=== PATIENT | male | born 1980 | race American Indian/Alaskan Native ===

== ENCOUNTER 2017-02-13 17:53 | Emergency (ER) | payer SELFPAY ==
[2017-02-13 18:08] VITALS: BP 133/95
[2017-02-13] MEDS ORDERED: MORPHINE ONE (18:41)
--- NOTE | 2017-02-13 20:25 | Emergency Department Report ---
ED ENT HPI - General Chief complaint: Dental/Oral Stated complaint: TOOTH ACHE Time Seen by Provider: 02/13/17 20:03 Source: patient Mode of arrival: Ambulatory Limitations: No Limitations - History of Present Illness Initial comments: For 5 days of left sided lower jaw pain. Patient has not had his 2 was 98. He is scheduled for an appointment on March 15. No fevers. He has pain with chewing and eating. MD complaint: tooth pain Location: tooth # (17) Severity: moderate Quality: aching Consistency: constant Improves with: other Worsens with: eating, other - Related Data Previous Rx's Medication Instructions Recorded Last Taken Type HYDROcodone/APAP 5-325 [[place] 1 each PO Q6HR PRN #10 tablet 02/13/17 Unknown Rx 5-325 mg TAB] Ibuprofen [Motrin 600 MG tab] 600 mg PO Q8H PRN #30 tablet 02/13/17 Unknown Rx Penicillin Vk [Veetids TAB] 500 mg PO TID #60 tablet 02/13/17 Unknown Rx Allergies Allergy/AdvReac Type Severity Reaction Status Date / Time No Known Allergies Allergy Unverified 02/13/17 18:08 ED Dental HPI - General Chief complaint: Dental/Oral Stated complaint: TOOTH ACHE Time Seen by Provider: 02/13/17 20:03 Source: patient Mode of arrival: Ambulatory Limitations: No Limitations - Related Data Previous Rx's Medication Instructions Recorded Last Taken Type HYDROcodone/APAP 5-325 [[place] 1 each PO Q6HR PRN #10 tablet 02/13/17 Unknown Rx 5-325 mg TAB] Ibuprofen [Motrin 600 MG tab] 600 mg PO Q8H PRN #30 tablet 02/13/17 Unknown Rx Penicillin Vk [Veetids TAB] 500 mg PO TID #60 tablet 02/13/17 Unknown Rx Allergies Allergy/AdvReac Type Severity Reaction Status Date / Time No Known Allergies Allergy Unverified 02/13/17 18:08 ED Review of Systems ROS: Stated complaint: TOOTH ACHE Other details as noted in HPI Constitutional: denies: chills, fever Respiratory: denies: cough, orthopnea ED Past Medical Hx - Past Medical History Previous Medical History?: No - Surgical History Past Surgical History?: No - Social History Smoking Status: Never Smoker Substance Use Type: Alcohol - Medications Home Medications: Home Medications Medication Instructions Recorded Confirmed Last Taken Type HYDROcodone/APAP 5-325 [[place] 1 each PO Q6HR PRN #10 tablet 02/13/17 Unknown Rx 5-325 mg TAB] Ibuprofen [Motrin 600 MG tab] 600 mg PO Q8H PRN #30 tablet 02/13/17 Unknown Rx Penicillin Vk [Veetids TAB] 500 mg PO TID #60 tablet 02/13/17 Unknown Rx ED Physical Exam - General Limitations: No Limitations General appearance: alert, in no apparent distress - Head Head exam: Present: atraumatic, normocephalic - Expanded ENT Exam Expanded Mouth exam: Present: trismus (very mild), tongue normal. Absent: drooling, tongue elevation, laceration Teeth exam: Present: gingival enlargement Throat exam: Positive: normal inspection - Neck Neck exam: Present: normal inspection, other (fullness in the left submandibular region) ED Course Vital Signs 02/13/17 18:01 Temperature 98.5 F Pulse Rate 75 Respiratory 17 Rate Blood Pressure 133/95 O2 Sat by Pulse 98 Oximetry ED Medical Decision Making - Medical Decision Making Likely small dental abscess treated with oral antibiotics and oral pain medications. Patient is able to tolerate by mouth and I do not suspect any swallowing difficulties or airway obstruction. Portions of this chart were dictated with dictation software. There may be dictation errors contained within this note. Critical care attestation.: If time is entered above; I have spent that time in minutes in the direct care of this critically ill patient, excluding procedure time. ED Disposition Clinical Impression: Dental infection Disposition: DC- TO HOME OR SELFCARE Is pt being admited?: No Condition: Stable Instructions: Toothache (ED), Dental Abscess (ED) Prescriptions: HYDROcodone/APAP 5-325 [[place] 5-325 mg TAB] 1 each PO Q6HR PRN #10 tablet PRN Reason: Pain Ibuprofen [Motrin 600 MG tab] 600 mg PO Q8H PRN #30 tablet PRN Reason: Pain Penicillin Vk [Veetids TAB] 500 mg PO TID #60 tablet
== END 2017-02-13 20:42 | disposition home or self-care (01) ==
LOC: ED 17:53
DX: K02.9 Dental caries, unspecified (principal)
CPT/HCPCS: 99282; J2270